=== PATIENT | male | born 1940 | race Two or more races ===

== ENCOUNTER 2017-11-02 08:35 | Outpatient (CLI) | payer OTHER ==
[~2017-11-02 08:35] MED LIST: ATORVASTATIN CA20 MG; AVAPRO150 MG; GLIMEPIRIDE4 MG; JANUMET 50-501 UDTAB; LEVOTHYROXINE25 MCG; PANTOPRAZOLE SO40 MG
== END 2017-11-02 08:42 | disposition home or self-care (01) ==
LOC: TOM 08:35
DX: R63.0 Anorexia (principal); R63.4 Abnormal weight loss

== ENCOUNTER → 2018-11-27 | Outpatient (CLI) | payer OTHER | END | disposition home or self-care (01) | LOC: MRI 11:31 | DX: G30.1 Alzheimer's disease with late onset (principal); F01.50 Vascular dementia, unspecified severity, without behavioral disturbance, psychotic disturbance, mood disturbance, and anxiety | CPT/HCPCS: 70551 ==

== ENCOUNTER → 2018-11-30 | Outpatient (CLI) | payer OTHER | END | disposition home or self-care (01) | LOC: SONOGRAMA 10:26 | DX: N17.8 Other acute kidney failure (principal); E03.8 Other specified hypothyroidism; E11.51 Type 2 diabetes mellitus with diabetic peripheral angiopathy without gangrene; M54.5 Low back pain; Z01.810 Encounter for preprocedural cardiovascular examination; E78.89 Other lipoprotein metabolism disorders; E55.9 Vitamin D deficiency, unspecified; E66.8 Other obesity; E11.40 Type 2 diabetes mellitus with diabetic neuropathy, unspecified; G47.33 Obstructive sleep apnea (adult) (pediatric); R06.02 Shortness of breath ==

== ENCOUNTER 2018-12-31 14:50 | Emergency (ER) | payer OTHER ==
[~2018-12-31] VITALS: Ht 170.2 cm; Wt 68.0 kg
== END 2018-12-31 23:22 | disposition home or self-care (01) ==
LOC: ER 14:50
DX: E87.1 Hypo-osmolality and hyponatremia (principal); R53.81 Other malaise

== ENCOUNTER → 2019-01-06 | Outpatient (CLI) | payer OTHER | END | disposition home or self-care (01) | LOC: SONOGRAMA 07:22 → MAMO-SONO 08:45 | DX: R10.84 Generalized abdominal pain (principal) ==

== ENCOUNTER → 2019-03-05 | Emergency (ER) | payer OTHER ==
[~2019-03-05] VITALS: Ht 170.2 cm; Wt 67.6 kg
== END | disposition left against medical advice (07) ==
LOC: ER 09:14
DX: Z53.20 Procedure and treatment not carried out because of patient's decision for unspecified reasons (principal)

== ENCOUNTER → 2019-03-21 | Emergency (ER) | payer OTHER ==
[~2019-03-21] VITALS: Ht 162.6 cm; Wt 67.1 kg
[~2019-03-21] MED LIST changes: +IRON325 MG; +OMEPRAZOLE20 MG
== END | disposition designated cancer center or children's hospital (05) ==
LOC: ER 11:38
DX: S02.19XA Other fracture of base of skull, initial encounter for closed fracture (principal); S01.122A Laceration with foreign body of left eyelid and periocular area, initial encounter; M54.2 Cervicalgia; W18.09XA Striking against other object with subsequent fall, initial encounter; Y93.89 Activity, other specified; Y92.018 Other place in single-family (private) house as the place of occurrence of the external cause; Y99.8 Other external cause status

== ENCOUNTER → 2019-04-05 | Outpatient (CLI) | payer OTHER | END | disposition home or self-care (01) | LOC: RAD 09:21 | DX: H25.12 Age-related nuclear cataract, left eye (principal) ==

== ENCOUNTER 2020-06-21 12:51 | Emergency (ER) | payer OTHER ==
[~2020-06-21] VITALS: Ht 170.2 cm; Wt 68.9 kg
== END 2020-06-21 19:20 | disposition home or self-care (01) ==
LOC: ER 12:51
DX: R47.81 Slurred speech (principal); Z03.818 Encounter for observation for suspected exposure to other biological agents ruled out

== ENCOUNTER 2020-06-29 10:10 | Outpatient (CLI) | payer OTHER | END 2020-06-29 10:18 | disposition home or self-care (01) | LOC: NUCLEAR 10:10 | PROVIDERS: ATTEND Internal Medicine | DX: R55 Syncope and collapse (principal); R10.2 Pelvic and perineal pain ==

== ENCOUNTER 2020-09-21 08:59 | Outpatient (CLI) | payer OTHER | END 2020-09-21 09:08 | disposition home or self-care (01) | LOC: SONOGRAMA 08:59 | DX: Q61.00 Congenital renal cyst, unspecified (principal); Q61.01 Congenital single renal cyst; R10.84 Generalized abdominal pain; K80.80 Other cholelithiasis without obstruction; K76.0 Fatty (change of) liver, not elsewhere classified ==

== ENCOUNTER 2021-01-14 08:31 | Outpatient (CLI) | payer OTHER | END 2021-01-14 08:41 | disposition home or self-care (01) | LOC: SONOGRAMA 08:31 → MAMO-SONO 08:45 | DX: R10.0 Acute abdomen (principal) ==